=== PATIENT | male | born 1995 | race Caucasian/White ===

== ENCOUNTER 2016-04-16 09:00 | Outpatient (RCR) | payer MEDICARE, OTHER, MEDICAID | END 2016-04-19 | disposition home or self-care (01) | LOC: PT 09:00 | PROVIDERS: ATTEND Physician Assistant | DX: G80.0 Spastic quadriplegic cerebral palsy (principal); R26.2 Difficulty in walking, not elsewhere classified ==

== ENCOUNTER 2016-04-30 10:00 | Outpatient (RCR) | payer MEDICARE, OTHER, MEDICAID | END 2016-05-06 | disposition home or self-care (01) | LOC: OT 10:00 | PROVIDERS: ATTEND Physician Assistant | DX: M25.631 Stiffness of right wrist, not elsewhere classified (principal); M25.641 Stiffness of right hand, not elsewhere classified | CPT/HCPCS: 97003; 97110; 97140; 97530; 97760; G8984; G8985 ==

== ENCOUNTER 2016-06-23 09:15 | Outpatient (RCR) | payer MEDICARE, MEDICAID | END 2016-07-06 13:28 | disposition home or self-care (01) | LOC: PT 09:15 | PROVIDERS: ATTEND Physician Assistant | DX: M25.631 Stiffness of right wrist, not elsewhere classified (principal); M25.641 Stiffness of right hand, not elsewhere classified; R27.8 Other lack of coordination | CPT/HCPCS: 97110; 97140; 97530; G8978; G8979; G8984; G8985 ==

== ENCOUNTER 2016-07-14 09:15 | Outpatient (RCR) | payer MEDICARE, MEDICAID | END 2016-07-22 | disposition home or self-care (01) | LOC: PT 09:15 | PROVIDERS: ATTEND Physician Assistant | DX: G80.0 Spastic quadriplegic cerebral palsy (principal); R26.2 Difficulty in walking, not elsewhere classified | CPT/HCPCS: 97110; 97112; 97140; G8978; G8979 ==

== ENCOUNTER 2016-08-25 08:15 | Outpatient (RCR) | payer MEDICARE, MEDICAID | END 2016-08-31 10:14 | disposition home or self-care (01) | LOC: PT 08:15 | PROVIDERS: ATTEND Physician Assistant | DX: G80.0 Spastic quadriplegic cerebral palsy (principal); R26.2 Difficulty in walking, not elsewhere classified ==